=== PATIENT | male | born 1995 | race African-American/Black ===

== ENCOUNTER 2021-05-03 23:49 | Emergency (ER) | payer OTHER, SELFPAY ==
[2021-05-04 00:05] VITALS: PULSE 86; RESP 18; TEMP 37.3; O2SAT 96; O2SAT 97
--- NOTE | 2021-05-04 00:27 | ED.URI ---
HPI - URI/Sore Throat General Chief Complaint: Upper Respiratory Infection Stated Complaint: Covid-19 test Time Seen by Provider: 05/04/21 00:00 Source: RN notes reviewed History of Present Illness HPI Narrative: Patient presents to emergency department from home for upper respiratory infection. Patient states he initially got sick approximately 10 days ago. States he had a runny nose and sore throat he notes a mild cough that is nonproductive denies any fevers or chills chest pain shortness of breath abdominal pain nausea vomiting or any other symptoms. States he has been improving however his significant other and baby became ill the past several days and came with him to be tested for Covid denies any previous Covid vaccination Related Data Home Medications Medication Instructions Recorded Confirmed No Home Medications 05/04/21 05/04/21 Allergies Allergy/AdvReac Type Severity Reaction Status Date / Time No Known Allergies Allergy Verified 05/04/21 00:12 Review of Systems Review of Systems: Narrative: Gen.: Denies fevers or chills Eyes: Denies eye pain or visual change ENT: See HPI Respiratory: Denies shortness of breath reports mild cough CV: Denies chest pain or palpitations GI: Denies abdominal pain nausea, emesis or diarrhea Musculoskeletal: Denies back pain or muscle pain Neuro: Denies numbness, tingling, weakness or focal weakness Skin: Denies rash Except as documented, all other systems reviewed and negative [facility] Past Medical History Medical History (Updated 05/04/21 @ 00:31 by Chucky Livingston DO) Patient denies significant medical history Social History Social History (Updated 05/04/21 @ 00:29 by Chucky Livingston DO) Smoking status: Current every day smoker Exam Narrative: Exam Narrative: APPEARANCE: No acute distress, nontoxic, resting in bed EYES: EOMI HEENT: Normocephalic, atraumatic, RESPIRATORY: No respiratory distress Clear to auscultation bilaterally with no rhonchi wheezing or rales. CARDIOVASCULAR: Regular rate and rhythm without murmurs rubs or gallops. ABDOMINAL: Soft, nontender, nondistended, no rebound or guarding MUSCULOSKELETAl: Moves all extremities. No clubbing, cyanosis or edema. NEURO: Awake and alert. Following commands, speech normal, no focal deficits SKIN:: Warm, dry. No rashes lesions or abrasions PSYCHIATRIC: Normal affect/mood, Course Course Emergency Course: discussed with patient results of workup and diagnosis. Discussed need for follow-up with primary care, proper use of medication, and reasons to return to the emergency department. Patient understands and agrees to current treatment plan Vital Signs Vital signs: Vital Signs Temperature 99.1 F 05/04/21 00:05 Pulse Rate 86 05/04/21 00:05 Respiratory Rate 18 05/04/21 00:05 Pulse Oximetry 97 05/04/21 00:05 Temperature 99.1 F 05/04/21 00:05 Pulse Rate 86 05/04/21 00:05 Respiratory Rate 18 05/04/21 00:05 Pulse Oximetry 96 05/04/21 00:05 MDM - URI/Sore Throat MDM Narrative Medical decision making narrative: Patient presents for upper respiratory infection symptoms began 10 days ago denies feelings of shortness of breath or other family was present with similar symptoms and concerns of Covid does not have vaccine will obtain Covid swab at this time with discharge to follow-up as an outpatient Discharge Plan Discharge Clinical Impression: Suspected 2019-nCoV infection Patient Disposition: Home, Self-Care Condition: Stable Instructions: Antibiotic Form, COVID-19 (Coronavirus Disease 2019) (ED) Additional Instructions: Return for creasing shortness of breath, fever or any other symptoms or concern. Your swab for COVID-19 today need to remain on self-isolation until the results of your test are returned results of your test will go to the primary care physician chronic disease epidemiologist Prescriptions: No Action No Home Medications RF: 0 Follow-up/Referrals:
[2021-05-04 19:38] LABS: SARS-CoV-2 RNA PCR Positive
== END 2021-05-04 01:39 | disposition home or self-care (01) ==
PROVIDERS: Emergency Provider Emergency Medicine
DX: U07.1 COVID-19 (principal); F17.200 Nicotine dependence, unspecified, uncomplicated
CPT/HCPCS: 99283; C9803; U0003; U0005